=== PATIENT | female | born 1960 | race Caucasian/White ===

== ENCOUNTER → 2016-12-06 | Outpatient (CLI) | payer OTHER ==
[~2016-12-06] MED LIST: /PREG100CA PO; ADV250INH INH; ALB2.5NEB INH; Ambien PO; HCTZ PO; LIDO1DIS2 AD; LISI5TAB PO; LORA0.5T PO; LOSA100T PO; LOTE20TA PO; LYRI200C PO; NABU-42 PO; NABU500T GT; NORC10TA PO; OMEP20CA3 PO; PRED1TAB32 PO; REBI44IN SC; TOPR25TA PO; TYLE325T5 PO; VALT1TAB PO; ZEST10TA4 PO; ZOFR8TAB PO; ZOFR8TAB4 PO; [UNRECOGNIZED DRUG - CODE] PO
--- NOTE | 2016-12-06 14:04 | REP ---
Clinical: History sarcoidosis and asthma with acute cough. Technique: PA and lateral. Comparison: 05/12/2014. Findings: Diffuse coarsened markings and interstitial changes are appreciated consistent with a history of both sarcoidosis and chronic reactive airway disease. No obvious focal consolidation, effusion, or pneumothorax. Mediastinum and cardiac silhouette normal. No obvious adenopathy. Skeletal structures intact. Impression: Chronic-appearing changes. No obvious acute cardiopulmonary process. Given the patient's history, if symptoms persist consider chest CT for further investigation. Signed by Pawel Meyer MD 12/06/2016 01:55 P
== END ==
LOC: M SMT 13:15
PROVIDERS: ATTEND Nurse Practitioner Adult Health
DX: R05 Cough (principal); D86.2 Sarcoidosis of lung with sarcoidosis of lymph nodes; J45.40 Moderate persistent asthma, uncomplicated

== ENCOUNTER → 2016-12-12 | Outpatient (REF) | payer OTHER ==
[2016-12-12 13:40] LABS: ALBUMIN 3.7 GM/DL (3.2-5.2); ALBUMIN/GLOBULIN RATIO 1.03 (1.00-1.93); BILIRUBIN,TOTAL 0.5 MG/DL (0.2-1.0); CALCIUM LEVEL 8.9 MG/DL (8.5-10.1); CREATININE FOR GFR 1.44 MG/DL (0.55-1.02); GLOMERULAR FILTRATION RATE 39.9 (>51); TOTAL PROTEIN 7.3 GM/DL (6.4-8.2)
== END ==
LOC: M SFHCPLAZ 10:15
PROVIDERS: ATTEND Internal Medicine
DX: E87.6 Hypokalemia (principal); E83.42 Hypomagnesemia

== ENCOUNTER → 2017-02-06 | Outpatient (REF) | payer OTHER ==
[2017-02-06 13:36] LABS: MEAN CORPUSCULAR HEMOGLOBIN 30.6 pg (27.0-33.0); MEAN CORPUSCULAR HGB CONC 33.2 g/dl (32.0-36.5); MEAN CORPUSCULAR VOLUME 92.4 fl (80.0-96.0); RED CELL DISTRIBUTION WIDTH 13.1 % (11.5-14.5); WHITE BLOOD COUNT 4.5 K/mm3 (4.0-10.0)
[2017-02-06 13:41] LABS: ALBUMIN 3.7 GM/DL (3.2-5.2); ALBUMIN/GLOBULIN RATIO 1.16 (1.00-1.93); ALKALINE PHOSPHATASE 61 U/L (45-117); ALT/SGPT 18 U/L (12-78); ANION GAP 4 MEQ/L (8-16); AST/SGOT 15 U/L (15-37); BILIRUBIN,TOTAL 0.6 MG/DL (0.2-1.0); BLOOD UREA NITROGEN 22 MG/DL (7-18); CALCIUM LEVEL 8.8 MG/DL (8.5-10.1); CARBON DIOXIDE LEVEL 31 MEQ/L (21-32); CHLORIDE LEVEL 103 MEQ/L (98-107); CREATININE FOR GFR 1.01 MG/DL (0.55-1.02); GLOMERULAR FILTRATION RATE > 60.0 (>51); GLUCOSE, FASTING 93 MG/DL (70-105); POTASSIUM SERUM 4.6 MEQ/L (3.5-5.1); SODIUM LEVEL 138 MEQ/L (136-145); TOTAL PROTEIN 6.9 GM/DL (6.4-8.2)
== END ==
LOC: M SFHCPLAZ 11:01
PROVIDERS: ATTEND Internal Medicine
DX: D86.9 Sarcoidosis, unspecified (principal); I10 Essential (primary) hypertension; F41.8 Other specified anxiety disorders

== ENCOUNTER → 2017-02-08 | Outpatient (REF) | payer OTHER | LOC: M SFHCPLAZ 14:09 | PROVIDERS: ATTEND Internal Medicine | DX: Z11.4 Encounter for screening for human immunodeficiency virus [HIV] (principal) ==

== ENCOUNTER → 2017-06-12 | Outpatient (REF) | payer OTHER ==
[2017-06-12 11:29] LABS: MEAN CORPUSCULAR HEMOGLOBIN 31.3 pg (27.0-33.0); MEAN CORPUSCULAR HGB CONC 34.6 g/dl (32.0-36.5); MEAN CORPUSCULAR VOLUME 90.5 fl (80.0-96.0); RED CELL DISTRIBUTION WIDTH 13.3 % (11.5-14.5); WHITE BLOOD COUNT 3.9 K/mm3 (4.0-10.0)
[2017-06-12 12:21] LABS: ALBUMIN 3.5 GM/DL (3.2-5.2); ALBUMIN/GLOBULIN RATIO 1.21 (1.00-1.93); ALKALINE PHOSPHATASE 50 U/L (45-117); ALT/SGPT 21 U/L (12-78); ANION GAP 8 MEQ/L (8-16); AST/SGOT 10 U/L (15-37); BILIRUBIN,TOTAL 0.4 MG/DL (0.2-1.0); BLOOD UREA NITROGEN 19 MG/DL (7-18); CALCIUM LEVEL 8.4 MG/DL (8.5-10.1); CARBON DIOXIDE LEVEL 29 MEQ/L (21-32); CHLORIDE LEVEL 105 MEQ/L (98-107); CHOLESTEROL LEVEL 167 MG/DL (<200); CREATININE FOR GFR 0.89 MG/DL (0.55-1.02); GLOMERULAR FILTRATION RATE > 60.0 (>51); GLUCOSE, FASTING 93 MG/DL (70-105); SODIUM LEVEL 142 MEQ/L (136-145); TOTAL PROTEIN 6.4 GM/DL (6.4-8.2); TRIGLYCERIDES LEVEL 107 MG/DL (<150)
[2017-06-12 12:30] LABS: POTASSIUM SERUM 5.2 MEQ/L (3.5-5.1)
== END ==
LOC: M SFHCPLAZ 10:05
PROVIDERS: ATTEND Internal Medicine
DX: I10 Essential (primary) hypertension (principal); D86.9 Sarcoidosis, unspecified

== ENCOUNTER → 2017-12-05 | Outpatient (CLI) | payer OTHER ==
[2017-12-05 13:17] LABS: ALBUMIN 3.4 GM/DL (3.2-5.2); ALBUMIN/GLOBULIN RATIO 0.89 (1.00-1.93); ALKALINE PHOSPHATASE 107 U/L (45-117); ALT/SGPT 31 U/L (12-78); ANION GAP 6 MEQ/L (8-16); AST/SGOT 17 U/L (7-37); BILIRUBIN,TOTAL 0.3 MG/DL (0.2-1.0); BLOOD UREA NITROGEN 14 MG/DL (7-18); CALCIUM LEVEL 8.3 MG/DL (8.5-10.1); CARBON DIOXIDE LEVEL 33 MEQ/L (21-32); CHLORIDE LEVEL 102 MEQ/L (98-107); CREATININE FOR GFR 0.88 MG/DL (0.55-1.30); GLOMERULAR FILTRATION RATE > 60.0 (>51); GLUCOSE, FASTING 123 MG/DL (70-100); MAGNESIUM LEVEL 2.2 MG/DL (1.8-2.4); POTASSIUM SERUM 4.3 MEQ/L (3.5-5.1); SODIUM LEVEL 141 MEQ/L (136-145); TOTAL PROTEIN 7.2 GM/DL (6.4-8.2)
== END ==
LOC: M LAB 12:16
DX: I10 Essential (primary) hypertension (principal)

== ENCOUNTER → 2017-12-11 | Outpatient (CLI) | payer OTHER | LOC: M SMT 11:55 | DX: R05 Cough (principal) ==

== ENCOUNTER → 2018-02-12 | Outpatient (REF) | payer OTHER ==
[2018-02-12 17:11] LABS: BASO % 0.7 % (0.0-1.0); EOS % 0.9 % (0.0-3.0); HEMATOCRIT 39.1 % (36.0-47.0); HEMOGLOBIN 12.8 g/dl (12.0-15.5); IMMATURE GRANULOCYTE % 0.4 % (0-3.0); LYMPH # 1.1 10^3/uL (1.5-4.5); LYMPH % 24.5 % (24.0-44.0); MEAN CORPUSCULAR HEMOGLOBIN 30.3 pg (27.0-33.0); MEAN CORPUSCULAR HGB CONC 32.7 g/dl (32.0-36.5); MEAN CORPUSCULAR VOLUME 92.4 fl (80.0-96.0); MONO # 0.4 10^3/uL (0.0-0.8); MONO % 9.2 % (0.0-5.0); NEUTROPHILS % 64.3 % (36.0-66.0); PLATELET COUNT, AUTOMATED 265 10^3/uL (150-450); RED BLOOD COUNT 4.23 10^6/uL (4.00-5.40); RED CELL DISTRIBUTION WIDTH 13.8 % (11.5-14.5); WHITE BLOOD COUNT 4.6 10^3/uL (4.0-10.0)
[2018-02-12 17:29] LABS: C REACTIVE PROTEIN QUANTITATIV < 0.30 MG/DL (0.00-0.30)
== END ==
LOC: M LABNEURO 11:48
DX: M25.462 Effusion, left knee (principal)

== ENCOUNTER → 2019-02-04 | Outpatient (CLI) | payer OTHER ==
[~2019-02-04] MED LIST changes: -/PREG100CA PO; -HCTZ PO; +LYRI100C PO; +METO-1 PO; +ONDA-227 PO; -TOPR25TA PO; -ZOFR8TAB PO; -ZOFR8TAB4 PO; +[UNRECOGNIZED DRUG - CODE] PO; +[UNRECOGNIZED DRUG - CODE] PO
--- NOTE | 2019-02-04 11:48 | REPMRS ---
Patient History The patient states she had a clinical breast exam in 01/2019. Patient is postmenopausal and has history of melanoma skin cancer starting at age 18. No known family history of cancer. Taking estrogen for 29 years. Digital Woman Screen Mammo: February 04, 2019 - Exam #: [id number] Bilateral CC and MLO view(s) were taken. Technologist: Yaima Rutherford, Technologist Prior study comparison: January 26, 2018, digital woman screen mammo performed at [facility]. 2016, bilateral digital mammo screening bilat, performed at [facility]. September 14, 2015, bilateral digital woman screen mammo, performed at [facility]. FINDINGS: The breast tissue is heterogeneously dense. This may lower the sensitivity of mammography. There is a moderate amount of heterogeneously dense fibroglandular tissue which is fairly symmetric. There is no interval development of dominant mass, architectural distortion, or clustered microcalcification typical of malignancy. There has been no change in the appearance of the mammogram from the prior studies. 3-D tomosynthesis shows no additional findings. Assessment: BI-RADS/ACR category 1 mammogram. Negative Mammogram. Recommendation Routine screening mammogram of both breasts in 1 year (for women over age 40). This patient's Lifetime Breast Cancer RIsk is estimated at 4.7 %. This mammogram was interpreted with the aid of an FDA-approved computer-aided dectection system. Electronically Signed By: Andrew Lion MD 02/04/19 1377
== END ==
LOC: M WHC 09:13
PROVIDERS: ATTEND Nurse Practitioner Family
DX: Z12.31 Encounter for screening mammogram for malignant neoplasm of breast (principal); Z78.0 Asymptomatic menopausal state

== ENCOUNTER 2019-03-11 10:20 | Emergency (ER) | payer OTHER ==
[~2019-03-11] VITALS: Ht 162.6 cm; Wt 94.6 kg
[2019-03-11] MEDS ORDERED: CARV25TA PO (11:09)
[2019-03-11] MEDS ORDERED: ONDA8TAB8 PO (11:10)
[2019-03-11] MEDS ORDERED: SPIR-10 PO (11:10)
--- NOTE | 2019-03-11 11:44 | REP ---
CHEST, TWO VIEWS: COMPARISON: 12/11/2017 There is no evidence of acute infiltrate. No pleural effusion is seen. The heart is normal in size. The mediastinal silhouette is unremarkable. The visualized osseous structures are intact. IMPRESSION: No acute pulmonary disease. Electronically Signed by Stanley Caicedo MD 03/11/2019 07:47 P
[2019-03-11 11:54] LABS: BASO % 0.1 % (0.0-1.0); EOS % 0.1 % (0.0-3.0); HEMATOCRIT 40.2 % (36.0-47.0); HEMOGLOBIN 13.8 g/dl (12.0-15.5); LYMPH % 10.1 % (24.0-44.0); MEAN CORPUSCULAR HEMOGLOBIN 31.7 pg (27.0-33.0); MEAN CORPUSCULAR HGB CONC 34.3 g/dl (32.0-36.5); MEAN CORPUSCULAR VOLUME 92.4 fl (80.0-96.0); MONO # 0.6 10^3/uL (0.0-0.8); MONO % 6.3 % (0.0-5.0); NEUTROPHILS % 82.2 % (36.0-66.0); PLATELET COUNT, AUTOMATED 323 10^3/uL (150-450); RED BLOOD COUNT 4.35 10^6/uL (4.00-5.40); WHITE BLOOD COUNT 9.8 10^3/uL (4.0-10.0)
[2019-03-11 12:21] LABS: INFLUENZA A AMPLIFICATION NEGATIVE (NEGATIVE); INFLUENZA B AMPLIFICATION NEGATIVE (NEGATIVE)
[2019-03-11 12:22] LABS: ALBUMIN 3.5 GM/DL (3.2-5.2); ALT/SGPT 37 U/L (12-78); BILIRUBIN,DIRECT 0.1 MG/DL (0.0-0.2); BILIRUBIN,TOTAL 0.6 MG/DL (0.2-1.0); BLOOD UREA NITROGEN 27 MG/DL (7-18); CALCIUM LEVEL 9.1 MG/DL (8.8-10.2); CARBON DIOXIDE LEVEL 28 MEQ/L (21-32); CHLORIDE LEVEL 103 MEQ/L (98-107); CK-MB VALUE MASS < 1.0 NG/ML (<3.6); CPK CREATINE PHOSPHOKINASE 95 U/L (26-192); GLOMERULAR FILTRATION RATE > 60.0 (>45); GLUCOSE, FASTING 118 MG/DL (70-100); MB/CK RELATIVE INDEX 1.05 (< OR =4); NT-PRO BNP 285 PG/ML (<125); POTASSIUM SERUM 4.5 MEQ/L (3.5-5.1); SODIUM LEVEL 137 MEQ/L (136-145); TOTAL PROTEIN 7.6 GM/DL (6.4-8.2); TROPONIN I < 0.02 NG/ML (< 0.10)
[2019-03-11] MEDS ORDERED: ISOVUE-370 76% 100ML VIAL (Q9967) As Ordered ONE (12:29)
[2019-03-11] MEDS: IPRATROPIUM 0.5MG/ALBUTEROL 2.5MG INH SOL UD 3ML (DUONEB)(J7620) NEB PRN ×3 (13:03→13:59)
--- NOTE | 2019-03-11 13:32 | REP ---
CT ANGIOGRAM CHEST: TECHNIQUE: Axial contrast enhanced images from the thoracic inlet to the upper abdomen using 100 mL Isovue 370 intravenous contrast material with multiplanar reformations. There is no CT evidence of pulmonary embolism. There is no thoracic aortic aneurysm or dissection. The heart is normal in size. There is no pleural or pericardial effusion. Exophytic nodule posterior to the left lobe of the thyroid measures about 1.6 cm in diameter, increased since prior study of 04/23/2012. Multiple small partially calcified lymph nodes are seen throughout the mediastinum. No suspicious adenopathy is seen. Partially imaged hemangiomas again seen inferiorly in the right lobe of the liver. Lungs show chronic reticulonodular opacities which have improved since the prior CT of 04/23/2012 without definite acute infiltrate. There are mild degenerative changes of the spine. IMPRESSION: No CT evidence of pulmonary embolism or thoracic aortic dissection. Nodule along the posterior left lobe of the thyroid has increased in size since prior CT now measuring 1.6 cm in diameter. Recommend formal thyroid ultrasound to further evaluation. Electronically Signed by Stanley Caicedo MD 03/11/2019 07:48 P
[2019-03-11] MEDS ORDERED: methylPREDNISolone INJ 125 MG/2 ML VIAL (J2930) IV ONE (13:45)
[2019-03-11] MEDS ORDERED: NS 500 ML IV ONE (13:45)
[2019-03-11 14:27] VITALS: O2SAT 97
[2019-03-11] MEDS ORDERED: VIRT1SOL13 PO (14:41)
[2019-03-11] MEDS ORDERED: PRED20TA PO (14:42)
[2019-03-11 14:55] VITALS: BP 188/98
--- NOTE | 2019-03-11 23:48 | ECGEPIP ---
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
--- NOTE | 2019-03-12 14:57 | ED PDOC ---
Post-Departure Follow-Up dr jordyn barahona faxed formal report of cta chest for fu Remi Love MD March 12, 2019 14:57
== END 2019-03-11 14:56 | disposition home or self-care (01) ==
LOC: M ED 10:20
DX: J06.9 Acute upper respiratory infection, unspecified (principal); I10 Essential (primary) hypertension; R56.9 Unspecified convulsions; Z87.442 Personal history of urinary calculi; G35 Multiple sclerosis; D86.0 Sarcoidosis of lung; R91.1 Solitary pulmonary nodule; Z79.899 Other long term (current) drug therapy; Z88.0 Allergy status to penicillin
CPT/HCPCS: 36415; 71046; 71275; 80048; 80076; 82550; 82553; 83880; 84484; 85025; 87040; 87502; 93005; 94640; 96374; 99284; J2930; Q9967

== ENCOUNTER → 2019-04-02 | Outpatient (REF) | payer OTHER ==
[~2019-04-02] MED LIST changes: +CARV25TA PO; +ONDA8TAB8 PO; +PRED20TA PO; +SPIR-10 PO; +VIRT1SOL13 PO
== END ==
LOC: M LAB REF 13:03
PROVIDERS: ATTEND Internal Medicine Pulmonary Disease
DX: D86.2 Sarcoidosis of lung with sarcoidosis of lymph nodes (principal)

== ENCOUNTER → 2019-04-02 | Outpatient (CLI) | payer OTHER ==
--- NOTE | 2019-04-02 09:41 | REP ---
Chest x-ray: Two views. History: Sarcoidosis. Moderate persistent asthma with exacerbation. Comparison chest x-ray March 11, 2019 and December 11, 2017. Findings: The lungs are symmetrically aerated and free of infiltrate. Pleural angles are sharp. Heart size is borderline with cardiothoracic ratio measuring 49.9%. It is similar in appearance to the radiographs from December 11, 2017. The aorta slightly tortuous. Pulmonary vasculature is not increased. No acute bony abnormality is seen. Impression: Borderline heart size. No infiltrate seen. Otherwise no acute disease. Electronically Signed by Alvarez Lion MD 04/02/2019 09:47 A
== END ==
LOC: M SMT 08:02
PROVIDERS: ATTEND Internal Medicine Pulmonary Disease
DX: D86.2 Sarcoidosis of lung with sarcoidosis of lymph nodes (principal); J45.41 Moderate persistent asthma with (acute) exacerbation

== ENCOUNTER → 2019-04-26 | Outpatient (REF) | payer OTHER | LOC: M SFHCPLAZ 13:05 | PROVIDERS: ATTEND Dermatology | DX: Z85.820 Personal history of malignant melanoma of skin (principal) ==

== ENCOUNTER → 2019-05-02 | Outpatient (REF) | payer OTHER | LOC: M LABDRAWP 11:42 | PROVIDERS: ATTEND Dermatology | DX: Z85.820 Personal history of malignant melanoma of skin (principal) ==

== ENCOUNTER → 2019-06-25 | Outpatient (REF) | payer OTHER | LOC: M SFHCPLAZ 10:37 | PROVIDERS: ATTEND Dermatology | DX: D18.01 Hemangioma of skin and subcutaneous tissue (principal) ==

== ENCOUNTER → 2019-06-28 | Outpatient (CLI) | payer OTHER ==
--- NOTE | 2019-06-29 08:06 | REP ---
Clinical: Thyromegaly. Technique: Real time guaman scale and color evaluation using linear high frequency transducer. Findings: The thyroid gland is normal in contour and size with multiple bilateral nodules. The isthmus measures 3.1 mm in width. Right thyroid lobe measures 4.5 x 1.6 x 1.5 cm with multiple relatively nonspecific complex isoechoic nodules measuring up to approximately 11 x 6 x 8 mm. Left thyroid lobe measures 4.6 x 1.8 x 2.1 cm and includes multiple nodules measuring up to 10 x 7 x 9 mm including 7 x 5 x 7 mm nodule with rim calcification and posterior shadowing. Impression: Scattered bilateral nodules which are relatively nonspecific in appearance. Electronically Signed by Pawel Meyer MD 06/29/2019 07:57 A
== END ==
LOC: M RAD 17:12
PROVIDERS: ATTEND Internal Medicine
DX: E04.9 Nontoxic goiter, unspecified (principal)

== ENCOUNTER → 2019-08-05 | Outpatient (REF) | payer OTHER | LOC: M LAB REF 16:10 | PROVIDERS: ATTEND Otolaryngology | DX: E04.1 Nontoxic single thyroid nodule (principal) ==

== ENCOUNTER → 2019-09-18 | Outpatient (REF) | payer OTHER ==
[2019-09-18 12:40] LABS: BASO % 0.5 % (0.0-1.0); EOS # 0.1 10^3/uL (0.0-0.5); EOS % 1.8 % (0.0-3.0); HEMATOCRIT 41.8 % (36.0-47.0); HEMOGLOBIN 13.4 g/dl (12.0-15.5); LYMPH # 1.3 10^3/uL (1.5-5.0); MEAN CORPUSCULAR HEMOGLOBIN 30.2 pg (27.0-33.0); MEAN CORPUSCULAR HGB CONC 32.1 g/dl (32.0-36.5); MEAN CORPUSCULAR VOLUME 94.4 fl (80.0-96.0); MONO # 0.5 10^3/uL (0.0-0.8); MONO % 11.5 % (0.0-5.0); NEUTROPHILS # 2.2 10^3/uL (1.5-8.5); NEUTROPHILS % 53.9 % (36.0-66.0); PLATELET COUNT, AUTOMATED 258 10^3/uL (150-450); RED BLOOD COUNT 4.43 10^6/uL (4.00-5.40)
[2019-09-18 13:03] LABS: ALBUMIN 3.6 GM/DL (3.2-5.2); BILIRUBIN,TOTAL 0.6 MG/DL (0.2-1.0); CREATININE FOR GFR 1.48 MG/DL (0.55-1.30); GLOMERULAR FILTRATION RATE 38.3 (>45); POTASSIUM SERUM 5.4 MEQ/L (3.5-5.1)
[2019-09-18 13:48] LABS: FOLATE 7.2 NG/ML
== END ==
LOC: M LABNEURO 12:02
PROVIDERS: ATTEND Psychiatry & Neurology Neurology
DX: G35 Multiple sclerosis (principal)

== ENCOUNTER → 2019-10-24 | Outpatient (CLI) | payer OTHER ==
--- NOTE | 2019-10-24 12:06 | REP ---
CT paranasal sinuses: 10/24/2019. Indication: Sinusitis. Comparison: None. Technique: Unenhanced axial CT images through the paranasal sinuses were performed with coronal reconstructions provided. Findings: There are no air-fluid levels or frothy secretions throughout the paranasal sinuses. No significant periosteal mucosal thickening is present. The sinonasal passageways are patent. The mastoid air cells are clear. The TMJs are unremarkable. No significant ocular, intraorbital or intracranial abnormalities are present. Incidental note is made of marquise bullosa of the left middle nasal turbinate. There is rightward deviation of the nasal septum. Impression: No significant paranasal sinus mucosal disease by CT evaluation. Electronically Signed by Stu Ford DO 10/24/2019 11:57 A
== END ==
LOC: M RAD 11:01
PROVIDERS: ATTEND Otolaryngology
DX: J32.4 Chronic pansinusitis (principal)

== ENCOUNTER → 2020-01-16 | Outpatient (REF) | payer OTHER | LOC: M SFHCWAGY 12:38 | PROVIDERS: ATTEND Physician Assistant | DX: J06.9 Acute upper respiratory infection, unspecified (principal) ==

== ENCOUNTER → 2020-01-16 | Outpatient (REF) | payer OTHER ==
[2020-01-16 13:13] LABS: BASO % 0.1 % (0.0-1.0); EOS % 0.1 % (0.0-3.0); HEMATOCRIT 39.9 % (36.0-47.0); HEMOGLOBIN 13.8 g/dl (12.0-15.5); LYMPH # 1.1 10^3/uL (1.5-5.0); LYMPH % 15.2 % (24.0-44.0); MEAN CORPUSCULAR HEMOGLOBIN 31.4 pg (27.0-33.0); MEAN CORPUSCULAR HGB CONC 34.6 g/dl (32.0-36.5); MEAN CORPUSCULAR VOLUME 90.9 fl (80.0-96.0); MONO # 0.4 10^3/uL (0.0-0.8); MONO % 5.3 % (0.0-5.0); NEUTROPHILS # 5.4 10^3/uL (1.5-8.5); NEUTROPHILS % 78.7 % (36.0-66.0); PLATELET COUNT, AUTOMATED 283 10^3/uL (150-450); RED BLOOD COUNT 4.39 10^6/uL (4.00-5.40); WHITE BLOOD COUNT 6.9 10^3/uL (4.0-10.0)
[2020-01-16 13:36] LABS: CALCIUM LEVEL 9.4 MG/DL (8.8-10.2); CREATININE FOR GFR 1.12 MG/DL (0.55-1.30); GLOMERULAR FILTRATION RATE 52.8 (>45); POTASSIUM SERUM 4.5 MEQ/L (3.5-5.1)
== END ==
LOC: M SFHCPLAZ 11:17
PROVIDERS: ATTEND Physician Assistant
DX: J06.9 Acute upper respiratory infection, unspecified (principal)

== ENCOUNTER → 2020-01-16 | Outpatient (CLI) | payer OTHER ==
--- NOTE | 2020-01-16 12:06 | REPPI ---
Chest x-ray: Two views. History: Acute upper respiratory infection. Comparison chest x-ray April 02, 2019. Findings: The lungs are symmetrically aerated and no infiltrate is seen. Pleural angles are sharp. Heart is not enlarged. Pulmonary vasculature is not increased. The aorta somewhat tortuous. Impression: No active disease. Electronically Signed by Alvarez Lion MD 01/16/2020 11:57 A
== END ==
LOC: M PLAIMG 11:20
PROVIDERS: ATTEND Physician Assistant
DX: J06.9 Acute upper respiratory infection, unspecified (principal)

== ENCOUNTER 2020-06-25 10:37 | Emergency (ER) | payer OTHER ==
[~2020-06-25] VITALS: Ht 165.1 cm; Wt 87.3 kg
[2020-06-25] MEDS ORDERED: ACETAMINOPHEN TAB 650MG DOSE (2X325MG) PO ONE (11:30)
[2020-06-25] MEDS ORDERED: traMADol 50 MG TAB PO ONE (11:30)
[2020-06-25] MEDS ORDERED: KETOROLAC 30 MG/ML 1ML VIAL IM ONE (13:15)
[2020-06-25 14:36] VITALS: BP 199/94
[2020-06-25] MEDS ORDERED: NORC1TAB7 PO (14:36)
[2020-06-25] MEDS ORDERED: PRED20TA PO (14:36)
== END 2020-06-25 14:53 | disposition home or self-care (01) ==
LOC: M ED 10:37
DX: M54.31 Sciatica, right side (principal); Z79.891 Long term (current) use of opiate analgesic; Z79.51 Long term (current) use of inhaled steroids; Z79.52 Long term (current) use of systemic steroids; Z79.899 Other long term (current) drug therapy; Z88.8 Allergy status to other drugs, medicaments and biological substances
CPT/HCPCS: 96372; 99283; J1885

== ENCOUNTER → 2020-06-26 | Outpatient (CLI) | payer OTHER ==
[~2020-06-26] MED LIST changes: +MODA200T15 PO; +NORC1TAB7 PO; +PERC5TAB12 PO; +VALI5TAB PO
[2020-06-26 14:48] LABS: BASO % 0.2 % (0.0-1.0); HEMATOCRIT 40.1 % (36.0-47.0); HEMOGLOBIN 13.6 g/dl (12.0-15.5); LYMPH # 0.7 10^3/uL (1.5-5.0); LYMPH % 11.6 % (24.0-44.0); MEAN CORPUSCULAR HEMOGLOBIN 30.7 pg (27.0-33.0); MEAN CORPUSCULAR HGB CONC 33.9 g/dl (32.0-36.5); MEAN CORPUSCULAR VOLUME 90.5 fl (80.0-96.0); MONO # 0.2 10^3/uL (0.0-0.8); MONO % 2.6 % (0.0-5.0); NEUTROPHILS # 4.9 10^3/uL (1.5-8.5); NEUTROPHILS % 84.9 % (36.0-66.0); PLATELET COUNT, AUTOMATED 281 10^3/uL (150-450); RED BLOOD COUNT 4.43 10^6/uL (4.00-5.40); WHITE BLOOD COUNT 5.8 10^3/uL (4.0-10.0)
[2020-06-26 14:56] LABS: ALT/SGPT 23 U/L (12-78); BILIRUBIN,TOTAL 0.7 MG/DL (0.2-1.0); BLOOD UREA NITROGEN 25 MG/DL (7-18); CALCIUM LEVEL 9.3 MG/DL (8.8-10.2); CARBON DIOXIDE LEVEL 31 MEQ/L (21-32); CHLORIDE LEVEL 101 MEQ/L (98-107); CREATININE FOR GFR 1.19 MG/DL (0.55-1.30); GLOMERULAR FILTRATION RATE 49.1 (>45); GLUCOSE, FASTING 117 MG/DL (70-100); POTASSIUM SERUM 4.6 MEQ/L (3.5-5.1); RHEUMATOID FACTOR QUANT < 10.0 IU/ML (<15.0); SODIUM LEVEL 136 MEQ/L (136-145); TOTAL PROTEIN 7.6 GM/DL (6.4-8.2)
[2020-06-26 14:58] LABS: VITAMIN B12 LEVEL 319 PG/ML
[2020-06-26 14:59] LABS: FOLATE 8.3 NG/ML
[2020-06-26 16:34] LABS: ERYTHROCYTE SEDIMENTATION RATE 8 mm/hr (0-30)
[2020-07-03 00:07] LABS: ANTINUCLEAR ANTIBODIES DIRECT Negative (Negative); VITAMIN B1 LEVEL WHOLE BLOOD 133.1 nmol/L (66.5-200.0); VITAMIN B6,PYRIDOXAL PHOSPHATE 9.2 ug/L (2.0-32.8); VITAMIN E(ALPHA TOCOPHEROL) 13.3 mg/L (9.0-29.0)
== END ==
LOC: M PLALAB 12:13
PROVIDERS: ATTEND Psychiatry & Neurology Neurology
DX: G35 Multiple sclerosis (principal)

== ENCOUNTER 2020-07-02 00:49 | Emergency (ER) | payer OTHER ==
[~2020-07-02] VITALS: Ht 152.4 cm; Wt 87.3 kg
[~2020-07-02 00:49] MED LIST changes: -MODA200T15 PO; -PERC5TAB12 PO; -VALI5TAB PO
[2020-07-02] MEDS ORDERED: ONDANSETRON 4MG/2ML VIAL IV ONE (03:15)
[2020-07-02] MEDS ORDERED: MORPHINE 4 MG/ML 1ML VIAL/SYRINGE (J2270) IV PRN (03:15)
[2020-07-02] MEDS ORDERED: diazePAM 10MG/2ML SYRINGE (J3360 PER 5MG) IV ONE (03:15)
--- NOTE | 2020-07-02 04:12 | REPVR ---
PROCEDURE INFORMATION: Exam: XR Right Hip with Pelvis when Performed Exam date and time: 07/02/2020 3:37 AM Age: 60 years old Clinical indication: Other: Fall TECHNIQUE: Imaging protocol: XR Right hip with pelvis when performed. Views: 2 or 3 views. COMPARISON: No relevant prior studies available. FINDINGS: Bones/joints: There is no evidence of acute fracture or dislocation. The right hip joint space appears normal. Small osteophytes are present at the femoral head. There is mild bony hypertrophy at the pubic symphysis. Soft tissues: Two blunt-tipped, cylindrical metallic structures of uncertain etiology are noted in the midline, overlying the lower lumbar spine and upper sacrum. IMPRESSION: 1. No acute fracture identified. 2. Mild degenerative change of the right hip. Electronically signed by: Tammy Alexis On 07/02/2020 04:11:54 AM
[2020-07-02] MEDS ORDERED: MODA200T15 PO (05:04)
[2020-07-02] MEDS ORDERED: HYDROMORPHONE HCL 0.5 MG/ 0.5 ML SYRINGE (J1170 PER 1) IV PRN (05:15)
[2020-07-02] MEDS ORDERED: GABAPENTIN 300 MG CAP PO ONE (05:15)
[2020-07-02] MEDS ORDERED: PERC5TAB12 PO (06:10)
[2020-07-02] MEDS ORDERED: VALI5TAB PO (06:10)
[2020-07-02] MEDS ORDERED: PERCOCET 5MG/325MG TAB PO ONE (06:15)
[2020-07-02 06:55] VITALS: BP 142/70
== END 2020-07-02 07:02 | disposition home or self-care (01) ==
LOC: M ED 00:49
DX: M54.31 Sciatica, right side (principal); M51.36 Other intervertebral disc degeneration, lumbar region; G35 Multiple sclerosis; Z88.0 Allergy status to penicillin; Z79.899 Other long term (current) drug therapy; Z79.52 Long term (current) use of systemic steroids
CPT/HCPCS: 73502; 96374; 96375; 99284; J1170; J2270; J2405; J3360

== ENCOUNTER → 2020-07-10 | Outpatient (CLI) | payer OTHER ==
[~2020-07-10] MED LIST changes: +MODA200T15 PO; +PERC5TAB12 PO; +VALI5TAB PO
[2020-07-10 13:30] LABS: PLATELET COUNT, AUTOMATED 221 10^3/uL (150-450)
[2020-07-10 13:40] LABS: INR 0.91; PROTHROMBIN TIME 12.5 SECONDS (12.5-14.3)
[2020-07-10 13:41] LABS: PARTIAL THROMBOPLASTIN TIME 33.8 SECONDS (24.2-38.5)
[2020-07-10 13:55] LABS: COLLAGEN EPINEPHRINE 162 SECONDS (74-162)
== END ==
LOC: M PLALAB 11:51
PROVIDERS: ATTEND Physician Assistant
DX: M48.061 Spinal stenosis, lumbar region without neurogenic claudication (principal); M47.816 Spondylosis without myelopathy or radiculopathy, lumbar region

== ENCOUNTER → 2020-08-12 | Outpatient (CLI) | payer OTHER | LOC: M LABSMTC 09:27 | PROVIDERS: ATTEND Physical Medicine & Rehabilitation | DX: Z11.59 Encounter for screening for other viral diseases (principal) ==

== ENCOUNTER → 2020-11-06 | Outpatient (CLI) | payer OTHER ==
--- NOTE | 2020-11-06 15:05 | REPMRS ---
Patient History The patient states she had a clinical breast exam in 2020. No known family history of cancer. Taking estrogen for 29 years. 3D TOMOSYNTHESIS WAS PERFORMED. [facility] lifetime risk for breast cancer is 4.4%. [place] breast density c. Digital Woman Screen Mammo: November 06, 2020 - Exam #: [id number] Bilateral CC and MLO view(s) were taken. Technologist: Reina Verde, Technologist Prior study comparison: February 04, 2019, bilateral digital woman screen mammo performed at [facility]. January 26, 2018, digital woman screen mammo performed at [facility]. FINDINGS: The breast tissue is heterogeneously dense. This may lower the sensitivity of mammography. There has been no change in the appearance of the mammogram from the prior studies. There is a moderate amount of residual fibroglandular tissue which is fairly symmetric. There is no interval development of dominant mass, areas of architectural distortion, or clustered microcalcification typical of malignancy. Assessment: BI-RADS/ACR category 1 mammogram. Negative Mammogram. Recommendation Routine screening mammogram in 1 year (for women over age 40). This mammogram was interpreted with the aid of an FDA-approved computer-aided dectection system. Electronically Signed By: Stanley Caicedo MD 11/06/20 3023
== END ==
LOC: M WHC 13:26
PROVIDERS: ATTEND Nurse Practitioner Family
DX: Z12.31 Encounter for screening mammogram for malignant neoplasm of breast (principal); Z79.899 Other long term (current) drug therapy

== ENCOUNTER → 2020-11-23 | Outpatient (CLI) | payer OTHER | LOC: M LABSMTC 12:09 | PROVIDERS: ATTEND Family Medicine | DX: Z20.822 Contact with and (suspected) exposure to COVID-19 (principal) | CPT/HCPCS: C9803; U0003 ==

== ENCOUNTER → 2021-01-07 | Outpatient (CLI) | payer OTHER ==
--- NOTE | 2021-01-08 08:02 | REP ---
INDICATION: PAIN IN RT SHOULDER. COMPARISON: No comparison shoulder imaging.. TECHNIQUE: Axial, oblique coronal, and oblique sagittal imaging planes utilized. T1 and T2 weighted scans are included in the usual fashion with without fat saturation. FINDINGS: Cortical and medullary bone signal intensity are normal. There is some early osteoarthritic hypertrophy along the superior aspect of the acromioclavicular joint. Minimal marrow edema is seen in the distal clavicle. There is mild inferolateral hypertrophy of the acromion process. A small glenohumeral joint effusion is seen. There is is a tiny subacromial subdeltoid bursal effusion. There is tendinitis tendinosis change in the supraspinatus tendon. No focal or full-thickness T2 hyperintense cuff lesion is seen. There is tendinosis in the distal subscapularis tendon as well. Infraspinatus tendon is unremarkable. Subcortical cyst formation is seen in the superolateral humeral head. Biceps tendon appears intact. There is some irregularity and fraying of the and posterior cartilaginous labrum. No jordyn labral tear is seen. The superior labrum appears intact. IMPRESSION: Tendinitis tendinosis change in the distal supraspinatus and subscapularis tendons. Subacromial subdeltoid bursal effusion and glenohumeral joint effusion. Mild AC joint osteoarthritis. Mild inferior acromion process spurring. <Electronically signed by Andrew Lion > 01/08/21 [id number]
== END ==
LOC: M RAD 17:35
PROVIDERS: ATTEND Physician Assistant
DX: M19.011 Primary osteoarthritis, right shoulder (principal); M75.31 Calcific tendinitis of right shoulder; M25.411 Effusion, right shoulder

== ENCOUNTER → 2021-06-07 | Outpatient (CLI) | payer OTHER ==
[2021-06-07 14:04] LABS: BASO % 0.6 % (0.0-1.0); EOS # 0.1 10^3/uL (0.0-0.5); EOS % 2.2 % (0.0-3.0); HEMATOCRIT 38.2 % (36.0-47.0); HEMOGLOBIN 12.8 g/dl (12.0-15.5); LYMPH # 1.3 10^3/uL (1.5-5.0); MEAN CORPUSCULAR HGB CONC 33.5 g/dl (32.0-36.5); MEAN CORPUSCULAR VOLUME 92.5 fl (80.0-96.0); MONO # 0.4 10^3/uL (0.0-0.8); MONO % 7.9 % (2.0-8.0); NEUTROPHILS # 3.1 10^3/uL (1.5-8.5); NEUTROPHILS % 63.1 % (36.0-66.0); PLATELET COUNT, AUTOMATED 223 10^3/uL (150-450); RED BLOOD COUNT 4.13 10^6/uL (4.00-5.40)
[2021-06-07 14:39] LABS: ALBUMIN 3.6 GM/DL (3.2-5.2); BILIRUBIN,TOTAL 0.6 MG/DL (0.2-1.0); CALCIUM LEVEL 8.9 MG/DL (8.8-10.2); CHOLESTEROL RISK RATIO 5.096 (<5); CREATININE FOR GFR 1.23 MG/DL (0.55-1.30); GLOMERULAR FILTRATION RATE 47.1 (>45); POTASSIUM SERUM 5.4 MEQ/L (3.5-5.1); THYROID STIMULATING HORMONE 0.584 uIU/ML (0.358-3.740); TOTAL PROTEIN 7.2 GM/DL (6.4-8.2)
[2021-06-07 14:45] LABS: HEMOGLOBIN A1c 5.2 %
== END ==
LOC: M PLALAB 11:09
PROVIDERS: ATTEND Internal Medicine
DX: E78.00 Pure hypercholesterolemia, unspecified (principal); D86.9 Sarcoidosis, unspecified; E04.9 Nontoxic goiter, unspecified; R73.01 Impaired fasting glucose; I10 Essential (primary) hypertension

== ENCOUNTER → 2021-12-13 | Outpatient (CLI) | payer OTHER ==
[2021-12-13 16:10] LABS: ALBUMIN 3.8 GM/DL (3.2-5.2); BILIRUBIN,TOTAL 0.5 MG/DL (0.2-1.0); CALCIUM LEVEL 9.3 MG/DL (8.8-10.2); CHOLESTEROL RISK RATIO 4.351 (<5); CREATININE FOR GFR 1.25 MG/DL (0.55-1.30); GLOMERULAR FILTRATION RATE 46.2 (>45); MAGNESIUM LEVEL 2.1 MG/DL (1.8-2.4); POTASSIUM SERUM 4.6 MEQ/L (3.5-5.1); TOTAL PROTEIN 7.1 GM/DL (6.4-8.2)
== END ==
LOC: M PLALAB 11:24
PROVIDERS: ATTEND Internal Medicine
DX: E78.00 Pure hypercholesterolemia, unspecified (principal)

== ENCOUNTER → 2022-02-03 | Outpatient (REF) | payer OTHER ==
[~2022-02-03] MED LIST changes: +CODE118L PO; -VIRT1SOL13 PO
== END ==
LOC: M SFHCPLAZ 13:36
PROVIDERS: ATTEND Physician Assistant
DX: R05.9 Cough, unspecified (principal)

== ENCOUNTER → 2022-04-26 | Outpatient (CLI) | payer OTHER ==
[2022-04-26 13:48] LABS: BASO % 0.5 % (0.0-1.0); EOS # 0.1 10^3/uL (0.0-0.5); EOS % 2.3 % (0.0-3.0); HEMOGLOBIN 12.6 g/dl (12.0-15.5); LYMPH # 1.4 10^3/uL (1.5-5.0); LYMPH % 30.9 % (24.0-44.0); MEAN CORPUSCULAR HEMOGLOBIN 32.4 pg (27.0-33.0); MEAN CORPUSCULAR HGB CONC 34.1 g/dl (32.0-36.5); MEAN CORPUSCULAR VOLUME 95.1 fl (80.0-96.0); MONO # 0.4 10^3/uL (0.0-0.8); MONO % 8.9 % (2.0-8.0); NEUTROPHILS # 2.5 10^3/uL (1.5-8.5); NEUTROPHILS % 57.2 % (36.0-66.0); PLATELET COUNT, AUTOMATED 232 10^3/uL (150-450); RED BLOOD COUNT 3.89 10^6/uL (4.00-5.40); WHITE BLOOD COUNT 4.4 10^3/uL (4.0-10.0)
[2022-04-26 14:18] LABS: ALBUMIN 3.4 GM/DL (3.2-5.2); BILIRUBIN,TOTAL 0.6 MG/DL (0.2-1.0); CALCIUM LEVEL 8.9 MG/DL (8.8-10.2); CHOLESTEROL RISK RATIO 4.02 (<5); CREATININE FOR GFR 1.27 MG/DL (0.55-1.30); GLOMERULAR FILTRATION RATE 45.2 (>45); MAGNESIUM LEVEL 1.7 MG/DL (1.8-2.4); POTASSIUM SERUM 4.7 MEQ/L (3.5-5.1); THYROID STIMULATING HORMONE 1.39 uIU/ML (0.358-3.740); TOTAL PROTEIN 6.7 GM/DL (6.4-8.2)
== END ==
LOC: M PLALAB 11:00
PROVIDERS: ATTEND Internal Medicine
DX: I10 Essential (primary) hypertension (principal)

== ENCOUNTER → 2022-06-17 | Outpatient (CLI) | payer OTHER | LOC: M WHC 08:35 | PROVIDERS: ATTEND Internal Medicine | DX: Z12.31 Encounter for screening mammogram for malignant neoplasm of breast (principal) ==

== ENCOUNTER → 2022-09-14 | Outpatient (CLI) | payer OTHER ==
[2022-09-14 15:27] LABS: HEMATOCRIT 38.8 % (36.0-47.0); MEAN CORPUSCULAR HGB CONC 33.5 g/dl (32.0-36.5); MEAN CORPUSCULAR VOLUME 92.4 fl (80.0-96.0); PLATELET COUNT, AUTOMATED 268 10^3/uL (150-450); WHITE BLOOD COUNT 4.9 10^3/uL (4.0-10.0)
[2022-09-14 18:02] LABS: ALBUMIN 3.7 G/DL (3.2-5.2); BILIRUBIN,TOTAL 0.3 MG/DL (0.3-1.2); C REACTIVE PROTEIN QUANTITATIV 0.4 MG/DL (<1.0); CALCIUM LEVEL 9.2 MG/DL (8.3-10.6); CHOLESTEROL RISK RATIO 4.21 (<5); CREATININE FOR GFR 1.24 MG/DL (0.55-1.30); FREE T4 1.29 NG/DL (0.89-1.76); GLOMERULAR FILTRATION RATE 46.5 (>45); HDL CHOLESTEROL 50.3 MG/DL (>40); LDL CHOLESTEROL 123.7 MG/DL (<100); POTASSIUM SERUM 4.6 MMOL/L (3.5-5.1); THYROID STIMULATING HORMONE 0.681 uIU/ML (0.55-4.78); TOTAL 25(OH) VITAMIN D 42.7 NG/ML (20.0-100.0)
[2022-09-14 18:04] LABS: CREATININE, URINE 242.6 MG/DL
[2022-09-14 19:08] LABS: HEMOGLOBIN A1c 5.2 % (4.0-6.0)
== END ==
LOC: M PLALAB 12:06
PROVIDERS: ATTEND Internal Medicine Hematology
DX: E78.5 Hyperlipidemia, unspecified (principal)

== ENCOUNTER → 2022-12-16 | Outpatient (CLI) | payer OTHER ==
[2022-12-16 14:05] LABS: CREATININE FOR GFR 1.34 MG/DL (0.55-1.30); GLOMERULAR FILTRATION RATE 42.5 (>45)
== END ==
LOC: M PLALAB 10:49
PROVIDERS: ATTEND Psychiatry & Neurology Neurology
DX: I10 Essential (primary) hypertension (principal)

== ENCOUNTER → 2023-01-09 | Outpatient (CLI) | payer OTHER ==
[2023-01-09 14:49] LABS: HEMATOCRIT 38.3 % (36.0-47.0); HEMOGLOBIN 12.9 g/dl (12.0-15.5); MEAN CORPUSCULAR HEMOGLOBIN 31.6 pg (27.0-33.0); MEAN CORPUSCULAR HGB CONC 33.7 g/dl (32.0-36.5); MEAN CORPUSCULAR VOLUME 93.9 fl (80.0-96.0); PLATELET COUNT, AUTOMATED 218 10^3/uL (150-450); RED BLOOD COUNT 4.08 10^6/uL (4.00-5.40)
[2023-01-09 15:13] LABS: CREATININE, URINE 134.9 MG/DL
[2023-01-09 15:14] LABS: ALBUMIN 3.7 G/DL (3.2-5.2); ALKALINE PHOSPHATASE 69 U/L (46-116); ALT/SGPT 23 U/L (7.0-40); AST/SGOT 14 U/L (<34); BILIRUBIN,TOTAL 0.4 MG/DL (0.3-1.2); BLOOD UREA NITROGEN 23 MG/DL (9-23); CALCIUM LEVEL 8.8 MG/DL (8.3-10.6); CARBON DIOXIDE LEVEL 32 MMOL/L (20-31); CHLORIDE LEVEL 103 MMOL/L (98-107); CHOLESTEROL LEVEL 213 MG/DL (<200); CHOLESTEROL RISK RATIO 3.85 (<5); CREATININE FOR GFR 1.18 MG/DL (0.55-1.30); GLOMERULAR FILTRATION RATE 49.2 (>45); GLUCOSE, FASTING 97 MG/DL (74-106); HDL CHOLESTEROL 55.2 MG/DL (>40); LDL CHOLESTEROL 118.2 MG/DL (<100); MAU/CREAT RATIO 11.8 MCG/MG (0.0-30.0); NON-HDL-C 157.8 MG/DL; SODIUM LEVEL 140 MMOL/L (136-145); TOTAL PROTEIN 6.7 G/DL (5.7-8.2); TRIGLYCERIDES LEVEL 198 MG/DL (<150)
[2023-01-09 15:15] LABS: C REACTIVE PROTEIN QUANTITATIV < 0.40 MG/DL (<1.0); THYROID STIMULATING HORMONE 0.984 uIU/ML (0.55-4.78); TOTAL 25(OH) VITAMIN D 34.2 NG/ML (20.0-100.0)
[2023-01-09 15:16] LABS: FREE T4 1.27 NG/DL (0.89-1.76); VITAMIN B12 LEVEL 386 PG/ML (211-911)
== END ==
LOC: M PLALAB 08:55
PROVIDERS: ATTEND Internal Medicine Hematology
DX: R73.01 Impaired fasting glucose (principal)

== ENCOUNTER → 2023-04-26 | Outpatient (CLI) | payer OTHER | LOC: M PLAIMG 11:21 | PROVIDERS: ATTEND Internal Medicine Pulmonary Disease | DX: J45.40 Moderate persistent asthma, uncomplicated (principal) ==

== ENCOUNTER → 2023-06-13 | Outpatient (CLI) | payer OTHER ==
[2023-06-13 13:57] LABS: HEMATOCRIT 39.4 % (36.0-47.0); HEMOGLOBIN 13.5 g/dl (12.0-15.5); MEAN CORPUSCULAR HEMOGLOBIN 31.8 pg (27.0-33.0); MEAN CORPUSCULAR HGB CONC 34.3 g/dl (32.0-36.5); MEAN CORPUSCULAR VOLUME 92.9 fl (80.0-96.0); PLATELET COUNT, AUTOMATED 209 10^3/uL (150-450); RED BLOOD COUNT 4.24 10^6/uL (4.00-5.40); WHITE BLOOD COUNT 3.7 10^3/uL (4.0-10.0)
[2023-06-13 14:17] LABS: HEMOGLOBIN A1c 4.8 % (4.0-6.0)
[2023-06-13 14:21] LABS: FREE T4 1.27 NG/DL (0.89-1.76)
[2023-06-13 14:22] LABS: ALBUMIN 3.6 G/DL (3.2-5.2); ALKALINE PHOSPHATASE 64 U/L (46-116); ALT/SGPT 26 U/L (7.0-40); AST/SGOT 12 U/L (<34); BILIRUBIN,TOTAL 0.4 MG/DL (0.3-1.2); BLOOD UREA NITROGEN 39 MG/DL (9-23); C REACTIVE PROTEIN QUANTITATIV < 0.40 MG/DL (<1.0); CALCIUM LEVEL 9.4 MG/DL (8.3-10.6); CARBON DIOXIDE LEVEL 33 MMOL/L (20-31); CHLORIDE LEVEL 100 MMOL/L (98-107); CHOLESTEROL LEVEL 274 MG/DL (<200); CHOLESTEROL RISK RATIO 6.15 (<5); CREATININE FOR GFR 1.59 MG/DL (0.55-1.30); GLOMERULAR FILTRATION RATE 34.8 (>45); GLUCOSE, FASTING 86 MG/DL (74-106); HDL CHOLESTEROL 44.5 MG/DL (>40); LDL CHOLESTEROL 158.5 MG/DL (<100); NON-HDL-C 229.5 MG/DL; POTASSIUM SERUM 4.4 MMOL/L (3.5-5.1); SODIUM LEVEL 140 MMOL/L (136-145); THYROID STIMULATING HORMONE 1.279 uIU/ML (0.55-4.78); TOTAL 25(OH) VITAMIN D 19.2 NG/ML (20.0-100.0); TOTAL PROTEIN 6.8 G/DL (5.7-8.2); TRIGLYCERIDES LEVEL 355 MG/DL (<150); VITAMIN B12 LEVEL 349 PG/ML (211-911)
[2023-06-13 14:28] LABS: CREATININE, URINE 91.4 MG/DL; MAU/CREAT RATIO 3.2 MCG/MG (0.0-30.0)
== END ==
LOC: M PLALAB 11:34
PROVIDERS: ATTEND Internal Medicine Hematology
DX: I10 Essential (primary) hypertension (principal)

== ENCOUNTER → 2023-08-21 | Outpatient (REF) | payer OTHER ==
[2023-08-24 08:11] LABS: CODEINE, URINE Negative (Cutoff=100); CREATININE, URINE 133.6 mg/dL (20.0-300.0); HYDROCODONE CONFIRM, URINE 1730 ng/mL (Cutoff=100); HYDROCODONE, URINE Positive (.); HYDROMORPHONE CONFIRM, URINE 1210 ng/mL (Cutoff=100); HYDROMORPHONE, URINE Positive (.); MORPHINE, URINE Negative (Cutoff=100); OPIATES, URINE Positive ng/mL (Cutoff=300)
== END ==
LOC: M SFHCPLAZ 09:48
PROVIDERS: ATTEND Internal Medicine Hematology
DX: G89.29 Other chronic pain (principal)

== ENCOUNTER → 2024-02-06 | Outpatient (CLI) | payer OTHER ==
[2024-02-06 18:15] LABS: HEMATOCRIT 35.1 % (36.0-47.0); HEMOGLOBIN 11.7 g/dl (12.0-15.5); MEAN CORPUSCULAR HEMOGLOBIN 30.8 pg (27.0-33.0); MEAN CORPUSCULAR HGB CONC 33.3 g/dl (32.0-36.5); MEAN CORPUSCULAR VOLUME 92.4 fl (80.0-96.0); PLATELET COUNT, AUTOMATED 223 10^3/uL (150-450); WHITE BLOOD COUNT 5.1 10^3/uL (4.0-10.0)
[2024-02-06 18:33] LABS: HEMOGLOBIN A1c 4.9 % (4.0-6.0)
[2024-02-06 18:49] LABS: CREATININE, URINE 183.9 MG/DL; MAU/CREAT RATIO 5.4 MCG/MG (0.0-30.0)
[2024-02-06 18:53] LABS: C REACTIVE PROTEIN QUANTITATIV < 0.40 MG/DL (<1.0)
[2024-02-06 18:55] LABS: ALBUMIN 3.4 G/DL (3.2-5.2); ALKALINE PHOSPHATASE 71 U/L (46-116); ALT/SGPT 14 U/L (7.0-40); AST/SGOT 13 U/L (<34); BILIRUBIN,TOTAL 0.4 MG/DL (0.3-1.2); BLOOD UREA NITROGEN 23 MG/DL (9-23); CALCIUM LEVEL 9.2 MG/DL (8.3-10.6); CARBON DIOXIDE LEVEL 30 MMOL/L (20-31); CHLORIDE LEVEL 104 MMOL/L (98-107); CHOLESTEROL LEVEL 206 MG/DL (<200); CHOLESTEROL RISK RATIO 4.22 (<5); CREATININE FOR GFR 1.08 MG/DL (0.55-1.30); FREE T4 1.22 NG/DL (0.89-1.76); GLOMERULAR FILTRATION RATE 54.4 (>45); GLUCOSE, FASTING 79 MG/DL (74-106); HDL CHOLESTEROL 48.7 MG/DL (>40); LDL CHOLESTEROL 125.7 MG/DL (<100); NON-HDL-C 157.3 MG/DL; POTASSIUM SERUM 4.3 MMOL/L (3.5-5.1); SODIUM LEVEL 137 MMOL/L (136-145); THYROID STIMULATING HORMONE 1.394 uIU/ML (0.55-4.78); TOTAL PROTEIN 6.8 G/DL (5.7-8.2); TRIGLYCERIDES LEVEL 158 MG/DL (<150); VITAMIN B12 LEVEL 338 PG/ML (211-911)
== END ==
LOC: M PLALAB 16:17
PROVIDERS: ATTEND Internal Medicine Hematology
DX: E78.5 Hyperlipidemia, unspecified (principal)

== ENCOUNTER → 2024-03-05 | Outpatient (REF) | payer OTHER | LOC: M PLALAB 14:00 | PROVIDERS: ATTEND Obstetrics & Gynecology | DX: Z12.72 Encounter for screening for malignant neoplasm of vagina (principal); Z12.4 Encounter for screening for malignant neoplasm of cervix; Z01.419 Encounter for gynecological examination (general) (routine) without abnormal findings; Z77.9 Other contact with and (suspected) exposures hazardous to health ==

== ENCOUNTER → 2024-03-05 | Outpatient (CLI) | payer OTHER | LOC: M WHC 13:26 | PROVIDERS: ATTEND Obstetrics & Gynecology | DX: Z12.31 Encounter for screening mammogram for malignant neoplasm of breast (principal) ==

== ENCOUNTER 2024-03-22 10:41 | Day surgery (SDC) | payer OTHER ==
[~2024-03-22] VITALS: Ht 165.1 cm; Wt 92.5 kg
[~2024-03-22 10:41] MED LIST changes: +ALBU8.5H; +FURO20TA2 PO; +HYDR-3716 PO; +HYDR12.55 PO; +LIDOCAINE 2% 100MG/5ML SDV (FOR ANES.) As Ordered ONE; +LOSA100T46 PO; +MENE0.3T PO; +MONT10TA97 PO; +NABU-73 PO; +SYMB16INH; +ZOLP5TAB PO; +[UNRECOGNIZED DRUG - CODE] PO; +propofoL 200 MG/20 ML VIAL As Ordered ONE
[2024-03-22] MEDS: NS 1,000 ML IV ONE (11:31)
[2024-03-22] MEDS ORDERED: fentaNYL 100 MCG/2 ML INJECTION As Ordered ONE (12:07)
[2024-03-22 13:20] VITALS: BP 128/82; TEMP 97.3; O2SAT 97
== END 2024-03-22 13:45 | disposition home or self-care (01) ==
LOC: M OPP 10:41
PROVIDERS: ATTEND Internal Medicine Gastroenterology
DX: Z12.11 Encounter for screening for malignant neoplasm of colon (principal); D12.4 Benign neoplasm of descending colon; K29.70 Gastritis, unspecified, without bleeding; K20.90 Esophagitis, unspecified without bleeding; R12 Heartburn; I10 Essential (primary) hypertension; G35 Multiple sclerosis; Z79.02 Long term (current) use of antithrombotics/antiplatelets; Z79.51 Long term (current) use of inhaled steroids; Z79.52 Long term (current) use of systemic steroids; Z79.83 Long term (current) use of bisphosphonates; Z79.891 Long term (current) use of opiate analgesic; Z79.899 Other long term (current) drug therapy; Z88.1 Allergy status to other antibiotic agents
CPT/HCPCS: 43239; 45381; 45385; 88305; J3010

== ENCOUNTER → 2024-09-02 | Outpatient (CLI) | payer OTHER, MEDICARE ==
[~2024-09-02] MED LIST changes: -LIDOCAINE 2% 100MG/5ML SDV (FOR ANES.) As Ordered ONE; +ONDA-284 PO; -ONDA8TAB8 PO; -propofoL 200 MG/20 ML VIAL As Ordered ONE
== END ==
LOC: M RAD 10:24
PROVIDERS: ATTEND Physician Assistant Surgical
DX: S90.31XA Contusion of right foot, initial encounter (principal); W18.30XA Fall on same level, unspecified, initial encounter; Y92.009 Unspecified place in unspecified non-institutional (private) residence as the place of occurrence of the external cause

== ENCOUNTER → 2025-01-09 | Outpatient (REF) | payer OTHER, MEDICARE | LOC: M LAB REF 13:00 | PROVIDERS: ATTEND Nurse Practitioner Adult Health | DX: R05.9 Cough, unspecified (principal); J45.40 Moderate persistent asthma, uncomplicated ==

== ENCOUNTER → 2025-02-14 | Outpatient (REF) | payer OTHER, MEDICARE | LOC: M LAB REF 12:53 | PROVIDERS: ATTEND Nurse Practitioner Adult Health | DX: R05.9 Cough, unspecified (principal) ==

== ENCOUNTER → 2025-02-14 | Outpatient (CLI) | payer OTHER, MEDICARE | LOC: M PLAIMG 10:18 | PROVIDERS: ATTEND Nurse Practitioner Adult Health | DX: J45.40 Moderate persistent asthma, uncomplicated (principal) ==

== ENCOUNTER → 2025-03-11 | Outpatient (CLI) | payer OTHER, MEDICARE | LOC: M PLAIMG 12:44 | PROVIDERS: ATTEND Nurse Practitioner Adult Health | DX: D86.0 Sarcoidosis of lung (principal); J45.40 Moderate persistent asthma, uncomplicated ==

== ENCOUNTER → 2025-05-19 | Outpatient (REF) | payer OTHER, MEDICARE | LOC: M LAB REF 15:48 | PROVIDERS: ATTEND Internal Medicine Gastroenterology | DX: R19.7 Diarrhea, unspecified (principal); A04.72 Enterocolitis due to Clostridium difficile, not specified as recurrent; A09 Infectious gastroenteritis and colitis, unspecified ==

== ENCOUNTER → 2025-05-23 | Outpatient (CLI) | payer MEDICARE, OTHER ==
[2025-05-23 17:08] LABS: BASO # 0.0 10^3/uL (0.0-0.2); BASO % 0.7 % (0.0-1.0); EOS # 0.1 10^3/uL (0.0-0.5); EOS % 1.8 % (0.0-3.0); LYMPH # 1.3 10^3/uL (1.5-5.0); LYMPH % 30.3 % (24.0-44.0); MONO # 0.4 10^3/uL (0.0-0.8); MONO % 8.0 % (2.0-8.0); NEUTROPHILS # 2.6 10^3/uL (1.5-8.5); NEUTROPHILS % 59.0 % (36.0-66.0); PLATELET COUNT, AUTOMATED 216 10^3/uL (150-450)
[2025-05-23 17:23] LABS: ESTIMATED AVERAGE GLUCOSE 108.0 MG/DL (60-110)
[2025-05-23 17:29] LABS: CREATININE, URINE 119.9 MG/DL; MALB URINE SIEMENS < 3.0 MG/L
[2025-05-23 17:32] LABS: ALT/SGPT 14.0 U/L (7.0-40); AST/SGOT 15.0 U/L (<34); CALCIUM LEVEL 9.3 MG/DL (8.3-10.6); CARBON DIOXIDE LEVEL 30.0 MMOL/L (20-31); CHLORIDE LEVEL 99.0 MMOL/L (98-107); CHOLESTEROL LEVEL 256.0 MG/DL (<200); CHOLESTEROL RISK RATIO 5.15 (<5); CREATININE FOR GFR 1.4 MG/DL (0.55-1.30); GLOMERULAR FILTRATION RATE 41.5 (>45); LDL CHOLESTEROL 170.5 MG/DL (<100); NON-HDL-C 206.3 MG/DL; POTASSIUM SERUM 4.8 MMOL/L (3.5-5.1); SODIUM LEVEL 139.0 MMOL/L (136-145); TRIGLYCERIDES LEVEL 179.0 MG/DL (<150)
[2025-05-23 17:34] LABS: FREE T4 1.33 NG/DL (0.89-1.76)
== END ==
LOC: M PLALAB 14:45
PROVIDERS: ATTEND Student in an Organized Health Care Education/Training Program
DX: I10 Essential (primary) hypertension (principal); E78.00 Pure hypercholesterolemia, unspecified; Z79.899 Other long term (current) drug therapy

== ENCOUNTER → 2025-05-29 | Outpatient (CLI) | payer OTHER, MEDICARE | LOC: M CARPUL 08:43 | PROVIDERS: ATTEND Internal Medicine Pulmonary Disease | DX: J45.40 Moderate persistent asthma, uncomplicated (principal) ==

== ENCOUNTER → 2025-05-30 | Outpatient (CLI) | payer OTHER, MEDICARE ==
[~2025-05-30] MED LIST changes: +ISOVUE-370 76% 100 ML VIAL ONE
== END ==
LOC: M PLAIMG 13:09
PROVIDERS: ATTEND Internal Medicine Gastroenterology
DX: K57.32 Diverticulitis of large intestine without perforation or abscess without bleeding (principal); R63.4 Abnormal weight loss; R10.32 Left lower quadrant pain

== ENCOUNTER 2025-06-24 09:44 | Day surgery (SDC) | payer OTHER, MEDICARE ==
[~2025-06-24] VITALS: Ht 165.1 cm; Wt 84.7 kg
[~2025-06-24 09:44] MED LIST changes: -ALBU8.5H; +ALBU8.5H INH; +CHOL4PW PO; -ISOVUE-370 76% 100 ML VIAL ONE; +LIDOCAINE 2% 100 MG/5 ML SDV (FOR ANES.) As Ordered ONE; -SYMB16INH; +SYMB16INH INH
[2025-06-24 12:26] VITALS: TEMP 97
[2025-06-24 12:55] VITALS: BP 141/63; O2SAT 100
== END 2025-06-24 13:14 | disposition home or self-care (01) ==
LOC: M OPP 09:44
PROVIDERS: ATTEND Internal Medicine Gastroenterology
DX: D12.5 Benign neoplasm of sigmoid colon (principal); K57.30 Diverticulosis of large intestine without perforation or abscess without bleeding; K64.8 Other hemorrhoids; R19.7 Diarrhea, unspecified; Z88.8 Allergy status to other drugs, medicaments and biological substances; Z79.891 Long term (current) use of opiate analgesic; Z79.899 Other long term (current) drug therapy; R56.9 Unspecified convulsions

== ENCOUNTER → 2025-07-09 | Outpatient (CLI) | payer OTHER, MEDICARE ==
[~2025-07-09] MED LIST changes: -LIDOCAINE 2% 100 MG/5 ML SDV (FOR ANES.) As Ordered ONE; -ZOLP5TAB PO; +ZOLP5TAB9 PO
== END ==
LOC: M RAD 09:16
PROVIDERS: ATTEND Internal Medicine Gastroenterology
DX: R63.4 Abnormal weight loss (principal); R10.32 Left lower quadrant pain; R93.89 Abnormal findings on diagnostic imaging of other specified body structures

== ENCOUNTER → 2025-08-06 | Outpatient (CLI) | payer MEDICARE, OTHER | LOC: M WHC 07:58 | PROVIDERS: ATTEND Obstetrics & Gynecology | DX: Z12.31 Encounter for screening mammogram for malignant neoplasm of breast (principal); R92.333 Mammographic heterogeneous density, bilateral breasts ==